=== PATIENT | male | born 1995 | race Caucasian/White ===

== ENCOUNTER 2020-08-09 07:42 | Emergency (ER) | payer MEDICAID ==
[~2020-08-09] VITALS: Ht 188 cm; Wt 93.0 kg
[2020-08-09 07:42] VITALS: BP_SYST 148
== END 2020-08-09 08:05 ==
LOC: SED 07:42
DX: S60.041A Contusion of right ring finger without damage to nail, initial encounter (principal); W22.8XXA Striking against or struck by other objects, initial encounter; Y93.89 Activity, other specified; Y92.89 Other specified places as the place of occurrence of the external cause; Y99.8 Other external cause status
CPT/HCPCS: 99283